=== PATIENT | female | born 1975 | race Caucasian/White ===

== ENCOUNTER 2017-03-17 08:15 | Outpatient (CLI) | payer BC ==
[2017-03-17 09:47] LABS: Hematocrit 40.4 % (36.0-47.0); Mean Platelet Volume 8.4 fL (7.4-10.4); Red Blood Cell (RBC) Count 4.14 mill/uL (4.20-5.40); White Blood Cell (WBC) Count 6.5 thou/uL (4.8-10.8)
[2017-03-17 10:00] LABS: Anion Gap 11 mmol/L (10-20); BUN (Urea Nitrogen) 12 mg/dL (7.0-18.7); Calc. Creatinine Clearance 0 mL/min (70-130); Calcium 9.5 mg/dL (7.8-10.44); Carbon Dioxide 28 mmol/L (22-29); Chloride 103 mmol/L (98-107); Estimated GFR-MDRD 62
== END 2017-03-17 08:16 | disposition home or self-care (01) ==
LOC: LABBT 08:15
PROVIDERS: ATTEND Surgery
DX: Z01.812 Encounter for preprocedural laboratory examination (principal); K43.9 Ventral hernia without obstruction or gangrene
CPT/HCPCS: 80048; 85027

== ENCOUNTER 2017-03-25 09:48 | Day surgery (SDC) | payer BC ==
[2017-03-17 08:58] VITALS: BMI 22.8
[2017-03-25] MEDS ORDERED: Fentanyl 100 MCG/2 ML VIAL ONE ×2 (11:42)
[2017-03-25] MEDS ORDERED: Bupivacaine/Epinephrine 0.25% 30 ML VIAL ONE (11:43)
[2017-03-25] MEDS ORDERED: CEFAZOLIN/Water 2 GM/20 ML SYRINGE ONE (12:04)
[2017-03-25] MEDS ORDERED: Midazolam HCl 2 mg/2 ml Vial ONE (12:09)
[2017-03-25] MEDS ORDERED: Famotidine/PF 20 mg/2ml Vial ONE (12:09)
--- NOTE | 2017-03-25 13:01 | OP ---
DATE OF PROCEDURE: 03/25/2017 PREOPERATIVE DIAGNOSIS: Ventral hernia. POSTOPERATIVE DIAGNOSIS: Ventral hernia. PROCEDURE: Ventral hernia repair with mesh, Proceed ventral patch small. SURGEON: Dr. Tim Fisher ANESTHESIA: General. ESTIMATED BLOOD LOSS: Minimal. COMPLICATIONS: None. SPECIMEN: None. FINDINGS: Ventral hernia. TECHNIQUE: The patient was taken to the operating room and placed supine on the table. After genera l anesthetic was obtained, the abdomen was shaved, and draped in a sterile fashion. Straight incisio n was made vertically over the palpable defect in the upper midline. Cautery was used to dissect gunnar n to the hernia sac. The hernia sac was dissected down to the fascia and then inverted into the abdo viktor cavity. Preperitoneal space was bluntly dissected through the defect. The Proceed ventral pat ch 4 cm mesh brought into the sterile field. The underlay was placed in the preperitoneal space and pulled up flat against the posterior abdominal wall. The tails were laid out laterally. The tails w ere sewn via U stitch of permanent braided suture at the edges of the fascia. The fascia was closed loosely over the mesh. The wound was irrigated. Local anesthetic was applied. The wound was closed using 3-0 Vicryl, 4-0 Monocryl, and Dermabond. The patient went to recovery in stable condition. A ll instrument counts, needle counts, and lap counts were correct.
[2017-03-25] MEDS ORDERED: Dexamethasone 20 MG/5 ML VIAL ONE (15:44)
[2017-03-25] MEDS ORDERED: Ketorolac Tromethamine 30 MG/ML VIAL ONE (15:44)
[2017-03-25] MEDS ORDERED: Lidocaine 1% PF 5 ML VIAL ONE (15:44)
[2017-03-25] MEDS ORDERED: PROPOFOL 200 MG/20 ML VIAL ONE (15:44)
[2017-03-25] MEDS ORDERED: Ondansetron HCl/PF 4 MG/2 ML Vial ONE (15:44)
== END 2017-03-25 14:19 | disposition home or self-care (01) ==
LOC: SDC 09:48
PROVIDERS: ATTEND Surgery
PROC: 0WUF0JZ Supplement Abdominal Wall with Synthetic Substitute, Open Approach (ICD-10-PCS; principal; 2017-03-25)
DX: K43.9 Ventral hernia without obstruction or gangrene (principal); Z91.011 Allergy to milk products
CPT/HCPCS: C1781; J1100; J1885; J2001; J2250; J2405; J2704; J3010; S0028